=== PATIENT | female | born 1985 | race Caucasian/White ===

== ENCOUNTER 2017-11-14 13:22 | Outpatient (CLI) | END 2017-11-14 15:46 | disposition home or self-care (01) ==

== ENCOUNTER 2018-01-25 10:16 | Outpatient (CLI) | END 2018-01-25 12:10 | disposition home or self-care (01) ==

== ENCOUNTER 2018-01-28 13:04 | Outpatient (CLI) | END 2018-01-28 14:45 | disposition home or self-care (01) ==

== ENCOUNTER 2018-02-26 08:03 | Inpatient (IN) | END 2018-03-02 12:59 | disposition home or self-care (01) | DRG 807 ==

== ENCOUNTER 2018-04-04 13:23 | Emergency (ER) | payer OTHER ==
[~2018-04-04] VITALS: Ht 167.6 cm; Wt 92.4 kg
[~2018-04-04 13:23] MED LIST: PREN-47 PO
[2018-04-04 13:34] VITALS: Ht 167.6 cm; Wt 92.4 kg
[2018-04-04] MEDS ORDERED: LIDOCAINE/MYLANTA 40 ML BTL PO STA (14:52)
[2018-04-04] MEDS ORDERED: ONDA4TAB14 PO (16:48)
[2018-04-04] MEDS ORDERED: UDMYL PO (16:48)
[2018-04-04 16:58] VITALS: BP 110/75; PULSE 71; RESP 16
--- NOTE | 2018-04-04 21:02 | ERD ---
ER Documentation Chief Complaint Chief Complaint SHARP MID ABDOMINAL PAIN RADIATING TO THE BACK X 4 DAYS,VOMITTED X2 HPI 33yo female presents for abdominal pain x4 days. Abd pain is noted to be in the periumbilical area and right upper quadrant, rated 7/10, intermittent, described as sharp and burning. She also c/o nausea, vomiting x2 and low back pain. Pain is worse with eating. She took advil which help with the pain. Denies fever, CP, SOB, dysuria. No diarrhea noted. She has history of kidney infection. Denies ETOH, denies gallstone history. ROS All systems reviewed and are negative except as per history of present illness. Medications Home Meds Active Scripts Magaldrate/Simethicone* (Mag-Al Plus Suspension*) 30 Ml Oral.susp, 30 ML PO Q6H PRN for GASTROINTESTINAL UPSET, #1 BOTTLE Prov:MARIA INES MOHR 04/04/18 Ondansetron (Ondansetron Odt) 4 Mg Tab.rapdis, 4 MG PO Q6H PRN for NAUSEA AND/OR VOMITING, #10 TAB Prov:ONURMARIA INES CARDONA 04/04/18 Reported Medications [id number]-Dymmo Acid (Prenata Chewable) 1 Each Tab.chew, 1 TAB PO DAILY, TAB.CHEW 11/14/17 Allergies Allergies: Coded Allergies: Penicillins (Verified Allergy, Unknown, RASH, 04/04/18) PMhx/Soc Medical and Surgical Hx: pt denies Medical Hx, pt denies Surgical Hx History of Surgery: No Anesthesia Reaction: No Hx Neurological Disorder: No Hx Respiratory Disorders: No Hx Cardiac Disorders: No Hx Psychiatric Problems: No Hx Miscellaneous Medical Probl: Yes (KIDNEY INFECTION) Hx Alcohol Use: No Hx Substance Use: No Hx Tobacco Use: No Smoking Status: Never smoker Physical Exam Vitals Vital Signs Date Temp Pulse Resp B/P (MAP) Pulse Ox O2 O2 Flow FiO2 Time Delivery Rate 04/04/18 97.8 71 16 110/75 97 Room Air 16:58 (87) 04/04/18 97.4 72 19 117/65 98 13:34 (82) Physical Exam Const: No acute distress Resp: Clear to auscultation bilaterally Cardio: Regular rate and rhythm, no murmurs Abd: Soft, non distended. Normal bowel sounds, mild tenderness to palpation for periumbilical and right upper quadrant, no McBurney's point tenderness, no Armas sign, no rebound or guarding noted Skin: No petechiae or rashes Back: No midline or flank tenderness Ext: No cyanosis, or edema Neur: Awake and alert Psych: Normal Mood and Affect Results 24 hrs Laboratory Tests Test 04/04/18 15:05 04/04/18 15:07 POC Beta HCG, Qualitative NEGATIVE White Blood Count 9.4 10^3/ul Red Blood Count 4.79 10^6/ul Hemoglobin 13.3 g/dl Hematocrit 41.1 % Mean Corpuscular Volume 85.8 fl Mean Corpuscular Hemoglobin 27.8 pg Mean Corpuscular Hemoglobin Concent 32.4 g/dl Red Cell Distribution Width 13.1 % Platelet Count 232 10^3/UL Mean Platelet Volume 12.1 fl Immature Granulocytes % 0.300 % Neutrophils % 62.7 % Lymphocytes % 29.8 % Monocytes % 5.2 % Eosinophils % 1.7 % Basophils % 0.3 % Nucleated Red Blood Cells % 0.0 /100WBC Immature Granulocytes # 0.030 10^3/ul Neutrophils # 5.9 10^3/ul Lymphocytes # 2.8 10^3/ul Monocytes # 0.5 10^3/ul Eosinophils # 0.2 10^3/ul Basophils # 0.0 10^3/ul Nucleated Red Blood Cells # 0.0 10^3/ul Urine Color YELLOW Urine Clarity SLIGHTLY CLOUDY Urine pH 5.0 Urine Specific [place] 1.016 Urine Ketones NEGATIVE mg/dL Urine Nitrite NEGATIVE mg/dL Urine Bilirubin NEGATIVE mg/dL Urine Urobilinogen NEGATIVE mg/dL Urine Leukocyte Esterase TRACE Corin/ul Urine Microscopic RBC 1 /HPF Urine Microscopic WBC 3 /HPF Urine Squamous Epithelial Cells FEW /HPF Urine Hemoglobin NEGATIVE mg/dL Urine Glucose NEGATIVE mg/dL Urine Total Protein NEGATIVE mg/dl Sodium Level 140 mmol/L Potassium Level 4.5 mmol/L Chloride Level 107 mmol/L Carbon Dioxide Level 23 mmol/L Anion Gap 10 Blood Urea Nitrogen 14 mg/dl Creatinine 0.89 mg/dl Est Glomerular Filtrat Rate mL/min > 60 mL/min Glucose Level 90 mg/dl Calcium Level 9.6 mg/dl Total Bilirubin 0.4 mg/dl Direct Bilirubin 0.00 mg/dl Indirect Bilirubin 0.4 mg/dl Aspartate Amino Transf (AST/SGOT) 82 IU/L Alanine Aminotransferase (ALT/SGPT) 147 IU/L Alkaline Phosphatase 112 IU/L Total Protein 7.8 g/dl Albumin 4.5 g/dl Globulin 3.30 g/dl Albumin/Globulin Ratio 1.36 Lipase 51 U/L Current Medications Medications Dose Sig/Dennys Start Time Status Last (Trade) Ordered Route PRN Stop Time Admin Dose Reason Admin 40 ml ONCE STAT 04/04/18 DC 04/04/18 Miscellaneous PO 14:52 15:01 Medication 04/04/18 14:53 (Gi Cocktail (2)) Procedures/MDM Medical Decision Making: Differential diagnosis includes but not limited to acute gastroenteritis, appendicitis, cholecystitis, pancreatitis. Patient appeared well on physical exam. Nontoxic appearing. Abdominal examination showed tenderness in the periumbical and right upper quadrant. Labs: CBC showed no anemia, no elevated WBC to suggest infection CMP showed no electrolyte abnormalities, there was normal kidney function, mildly elevated AST and ALT. Lipase was normal Urine was negative UA was negative for infection Imaging: Gallstone ultrasound showed Gallbladder is not well seen. Possible gallbladder filled with calcified stones versus overlying bowel gas in the gallbladder fossa. Possible gallbladder wall thickening. No evidence of pericholecystic fluid. Mild right-sided hydronephrosis. There is low suspicion for an acute abdomen. patient advised to repeat liver function test and gallbladder ultrasound with PCP patient possibly has acute gastritis. ED course: Patient was given GI cocktail. Symptoms improved with treatment. Prescription(s): Patient given prescription for mylanta and zofran. Patient advised to follow up with PCP in 1-2 days. Patient advised to return to ED for new or worsening symptoms. Patient stable on discharge from the ED. Disclaimer: Inadvertent spelling and grammatical errors are likely due to EHR/dictation software use and do not reflect on the overall quality of patient care. Also, please note that the electronic time recorded on this note does not necessarily reflect the actual time of the patient encounter. Departure Diagnosis: Primary Impression: Abdominal pain Condition: Fair Patient Instructions: Abdominal Pain Referrals: COURT LYON (PCP) Additional Instructions: Call your primary care doctor TOMORROW for an appointment during the next 1-2 da ys.See the doctor sooner or return here if your condition worsens before your appointment time. MARIA INES MOHR DO Apr 04, 2018 21:02
== END 2018-04-04 16:58 | disposition home or self-care (01) ==
LOC: FTE 13:23
DX: R10.9 Unspecified abdominal pain (principal)
CPT/HCPCS: 36415; 76705; 80053; 81001; 81025; 83690; 85025; Z7502; Z7610

== ENCOUNTER 2018-05-10 19:13 | Emergency (ER) | payer OTHER ==
[~2018-05-10] VITALS: Ht 165.1 cm; Wt 95.7 kg
[~2018-05-10 19:13] MED LIST changes: +ONDA4TAB14 PO; +UDMYL PO
[2018-05-10 19:18] VITALS: Ht 165.1 cm; Wt 95.7 kg
[2018-05-10] MEDS ORDERED: ONDANSETRON 4 MG INJ IV STA (20:49)
[2018-05-10] MEDS ORDERED: SOD CHLORIDE 0.9% 1,000 ML IV STA (20:49)
[2018-05-10] MEDS ORDERED: morphine 4 MG/ML VIAL IV STA (20:49)
[2018-05-10 21:53] VITALS: BP 109/78; PULSE 86; RESP 21
[2018-05-10] MEDS ORDERED: IBUP800T48 PO (22:33)
--- NOTE | 2018-05-10 23:01 | ERD ---
ER Documentation Chief Complaint Chief Complaint R flank & RUQ ab pains just now; hx pyelo HPI 33-year-old female presents to the emergency room with epigastric and right upper quadrant abdominal pain radiating to her back. Symptoms for approximately 3-4 hours. Prior history of cholelithiasis. No dysuria urgency or frequency. No fevers or chills. Remote history of pyelonephritis but this feels different. ROS All systems reviewed and are negative except as per history of present illness. Medications Home Meds Active Scripts Ibuprofen* (Motrin*) 800 Mg Tab, 800 MG PO Q6H PRN for PAIN AND OR ELEVATED TEMP, #30 TAB Prov:YORDY MONTES MD 05/10/18 Discontinued Reported Medications [id number]-Kuvd-Crjar Acid (Prenata Chewable) 1 Each Tab.chew, 1 TAB PO DAILY, TAB.CHEW 11/14/17 Discontinued Scripts Magaldrate/Simethicone* (Mag-Al Plus Suspension*) 30 Ml Oral.susp, 30 ML PO Q6H PRN for GASTROINTESTINAL UPSET, #1 BOTTLE Prov:MARIA INES MOHR DO 04/04/18 Ondansetron (Ondansetron Odt) 4 Mg Tab.rapdis, 4 MG PO Q6H PRN for NAUSEA AND/OR VOMITING, #10 TAB Prov:MARIA INES MOHR DO 04/04/18 Allergies Allergies: Coded Allergies: Penicillins (Verified Allergy, Unknown, RASH, 05/10/18) PMhx/Soc Medical and Surgical Hx: pt denies Medical Hx, pt denies Surgical Hx History of Surgery: No Anesthesia Reaction: No Hx Neurological Disorder: No Hx Respiratory Disorders: No Hx Cardiac Disorders: No Hx Psychiatric Problems: No Hx Miscellaneous Medical Probl: No Hx Alcohol Use: No Hx Substance Use: No Hx Tobacco Use: No Smoking Status: Never smoker FmHx Family History: No diabetes Physical Exam Vitals Vital Signs Date Temp Pulse Resp B/P (MAP) Pulse Ox O2 O2 Flow FiO2 Time Delivery Rate 05/10/18 97.2 86 21 109/78 100 Room Air 21:53 (88) 05/10/18 97.2 75 18 129/91 99 Room Air 21:04 (104) 05/10/18 97.2 86 18 165/75 99 19:18 (105) Physical Exam General: Well developed, well nourished, no acute distress Head: Normocephalic, atraumatic. Eyes: Pupils equally reactive, EOM intact ENT: Moist mucous membranes Neck: Supple, no lymphadenopathy Respiratory: Lungs clear bilaterally, no distress Cardiovascular: RRR, no murmurs, rubs, or gallops Abdominal: Soft, non-tender, non-distended, no peritoneal signs, negative Armas sign : Deferred MSK: No edema, no unilateral swelling, 5/5 strength Neurologic: Alert and oriented, moving all extremities, normal speech, no focal weakness, no cerebellar signs Skin: No rash Psych: Normal mood Result Diagram: 05/10/18 2100 05/10/18 2100 Results 24 hrs Laboratory Tests Test 05/10/18 20:57 05/10/18 20:58 05/10/18 21:00 Bedside Urine pH (LAB) 6.0 Bedside Urine Protein (LAB) Negative Bedside Urine Glucose (UA) Negative Bedside Urine Ketones (LAB) Negative Bedside Urine Blood 1+ Bedside Urine Nitrite (LAB) Negative Bedside Urine Leukocyte Esterase Trace (L POC Beta HCG, Qualitative NEGATIVE White Blood Count 11.1 10^3/ul Red Blood Count 4.41 10^6/ul Hemoglobin 12.3 g/dl Hematocrit 37.9 % Mean Corpuscular Volume 85.9 fl Mean Corpuscular Hemoglobin 27.9 pg Mean Corpuscular 32.5 g/dl Hemoglobin Concent Red Cell Distribution Width 13.6 % Platelet Count 267 10^3/UL Mean Platelet Volume 12.2 fl Immature Granulocytes % 0.500 % Neutrophils % 62.4 % Lymphocytes % 30.8 % Monocytes % 5.1 % Eosinophils % 0.8 % Basophils % 0.4 % Nucleated Red Blood Cells % 0.0 /100WBC Immature Granulocytes # 0.060 10^3/ul Neutrophils # 6.9 10^3/ul Lymphocytes # 3.4 10^3/ul Monocytes # 0.6 10^3/ul Eosinophils # 0.1 10^3/ul Basophils # 0.0 10^3/ul Nucleated Red Blood Cells # 0.0 10^3/ul Urine Color YELLOW Urine Clarity SLIGHTLY CLOUDY Urine pH 5.0 Urine Specific [place] 1.016 Urine Ketones NEGATIVE mg/dL Urine Nitrite NEGATIVE mg/dL Urine Bilirubin NEGATIVE mg/dL Urine Urobilinogen NEGATIVE mg/dL Urine Leukocyte Esterase 1+ Corin/ul Urine Microscopic RBC 2 /HPF Urine Microscopic WBC 14 /HPF Urine Squamous Epithelial Cells FEW /HPF Urine Bacteria FEW /HPF Urine Hemoglobin 2+ mg/dL Urine Glucose NEGATIVE mg/dL Urine Total Protein NEGATIVE mg/dl Sodium Level 140 mmol/L Potassium Level 4.1 mmol/L Chloride Level 102 mmol/L Carbon Dioxide Level 25 mmol/L Anion Gap 13 Blood Urea Nitrogen 16 mg/dl Creatinine 0.66 mg/dl Est Glomerular Filtrat > 60 mL/min Rate mL/min Glucose Level 112 mg/dl Calcium Level 9.6 mg/dl Total Bilirubin 0.5 mg/dl Direct Bilirubin 0.00 mg/dl Indirect Bilirubin 0.5 mg/dl Aspartate Amino Transf (AST/SGOT) 260 IU/L Alanine 138 IU/L Aminotransferase (ALT/SGPT) Alkaline Phosphatase 103 IU/L Total Protein 7.9 g/dl Albumin 4.4 g/dl Globulin 3.50 g/dl Albumin/Globulin Ratio 1.25 Lipase 400 U/L Current Medications Medications Dose Sig/Dennys Start Time Status Last (Trade) Ordered Route PRN Stop Time Admin Dose Reason Admin Sodium 1,000 ml @ Q1H STAT 05/10/18 DC 05/10/18 Chloride 1,000 mls/hr IV 20:49 20:59 05/10/18 21:48 Morphine 4 mg ONCE STAT 05/10/18 DC 05/10/18 Sulfate IV 20:49 20:58 (morphine) 05/10/18 20:51 Ondansetron 4 mg ONCE STAT 05/10/18 DC 05/10/18 HCl (Zofran IV 20:49 20:58 Inj) 05/10/18 20:51 Procedures/MDM EKG, MONITORS, & DIAGNOSTIC IMAGING: US GB IMPRESSION: 1. Hepatomegaly with fatty liver changes. 2. Cholelithiasis. 3. Multiple right renal calculi. Mild renal pelvic dilation is not excluded. Detail is limited. RPTAT: HPPP LAB INTERPRETATION: I reviewed the laboratory testing and it shows very mild transaminitis but a normal alk phos, lipase is nonspecifically elevated at 400 and normal bilirubin MEDICAL DECISION MAKING: Patient presents with what appears to be signs and symptoms consistent with biliary colic. Clinical exam is not consistent with acute cholecystitis or pyelonephritis. Otherwise benign abdominal exam without signs of acute appendicitis. ER COURSE: * The patient's laboratory testing does show some slight elevation of transaminitis and lipase however the patient's bilirubin is normal and alk phos is normal. This is nonspecific and not convincing for choledocholithias is. Given that the patient has complete resolution of pain I do not believe inpatient hospitalization for MRCP is necessary. Strict return precautions however were discussed and understood with the patient. * Urinalysis not convincing for UTI. * Repeat abdominal exam is benign. The patient was advised that she needs to follow-up with a general surgeon outpatient basis. Return for pain that is in tractable or fevers. Patient verbalized understanding and feels comfortable with the plan. CONSULTATION: None DISPOSITION PLAN: The patient does not have an identifiable emergent medical condition that warrants inpatient hospitalization at this time. The patient is deemed safe for discharge with outpatient follow-up. We discussed follow up with the patient's primary care doctor within 24 to 48 hours as needed. We also discussed return to the emergency room for worsening symptoms or worsening condition. Outpatient referral: General surgeon Discharge Medications: Motrin Departure Diagnosis: Primary Impression: Biliary colic Condition: Stable Patient Instructions: Biliary Colic With Gallstone (Confirmed) Referrals: Ángel AVILA SAMUEL MD Additional Instructions: Call your primary care doctor TOMORROW for an appointment during the next 1 WEEK.Tell the medical unit secretary that you were referred from this facility.See the doctor sooner or return here if your condition worsens before your appointment time. YORDY MONTES MD May 10, 2018 23:01
== END 2018-05-10 23:21 | disposition home or self-care (01) ==
LOC: E/R 19:13
DX: K80.50 Calculus of bile duct without cholangitis or cholecystitis without obstruction (principal)
CPT/HCPCS: 36415; 76705; 80053; 81001; 81025; 83690; 85025; 96374; 96375; J2270; J2405; J7030; Z7502; 81003

== ENCOUNTER 2018-06-13 19:51 | Emergency (ER) | payer OTHER ==
[~2018-06-13] VITALS: Ht 162.6 cm; Wt 97.7 kg
[~2018-06-13 19:51] MED LIST changes: +IBUP800T48 PO; -ONDA4TAB14 PO; -PREN-47 PO; -UDMYL PO
[2018-06-13 20:53] VITALS: Ht 162.6 cm; Wt 97.7 kg
[2018-06-13] MEDS ORDERED: KETOROLAC 30 MG INJ IV STA (23:40)
--- NOTE | 2018-06-14 01:44 | ERD ---
ER Documentation Chief Complaint Chief Complaint C/O EPIGASTRIC PAIN X2 MONTHS WORSE SINCE YESTERDAY HPI 33-year-old female, very pleasant with a history of known gallstones who presents with worsening postprandial right upper quadrant abdominal pain radiating to the right flank. Patient's symptoms are similar to bili or colic in the past. Pain is approximate 5 out of 10. No fevers or chills nausea or vomiting. Patient has surgical follow-up within the next month. ROS All systems reviewed and are negative except as per history of present illness. Medications Home Meds Active Scripts Ibuprofen* (Motrin*) 800 Mg Tab, 800 MG PO Q6H PRN for PAIN AND OR ELEVATED TEMP, #30 TAB Prov:YORDY MONTES MD 06/14/18 Ibuprofen* (Motrin*) 800 Mg Tab, 800 MG PO Q6H PRN for PAIN AND OR ELEVATED TEMP, #30 TAB Prov:YORDY MONTES MD 05/10/18 Allergies Allergies: Coded Allergies: Penicillins (Verified Allergy, Unknown, RASH, 05/10/18) PMhx/Soc History of Surgery: No Anesthesia Reaction: No Hx Neurological Disorder: No Hx Respiratory Disorders: No Hx Cardiac Disorders: No Hx Psychiatric Problems: No Hx Miscellaneous Medical Probl: No Hx Alcohol Use: Yes Hx Substance Use: No Hx Tobacco Use: No Smoking Status: Never smoker FmHx Family History: No diabetes Physical Exam Vitals Vital Signs Date Temp Pulse Resp B/P (MAP) Pulse Ox O2 O2 Flow FiO2 Time Delivery Rate 06/13/18 97.6 85 19 145/57 100 20:53 (86) Physical Exam General: Well developed, well nourished, no acute distress Head: Normocephalic, atraumatic. Eyes: Pupils equally reactive, EOM intact ENT: Moist mucous membranes Neck: Supple, no lymphadenopathy Respiratory: Lungs clear bilaterally, no distress Cardiovascular: RRR, no murmurs, rubs, or gallops Abdominal: Soft, very mild right upper quadrant abdominal tenderness without Armas sign. No tenderness to McBurney's point : Deferred MSK: No edema, no unilateral swelling, 5/5 strength Neurologic: Alert and oriented, moving all extremities, normal speech, no focal weakness, no cerebellar signs Skin: No rash Psych: Normal mood Result Diagram: 06/13/18 2350 06/13/18 2350 Results 24 hrs Laboratory Tests Test 06/13/18 23:50 06/13/18 23:54 White Blood Count 12.0 10^3/ul Red Blood Count 4.65 10^6/ul Hemoglobin 13.2 g/dl Hematocrit 40.6 % Mean Corpuscular Volume 87.3 fl Mean Corpuscular Hemoglobin 28.4 pg Mean Corpuscular Hemoglobin Concent 32.5 g/dl Red Cell Distribution Width 13.3 % Platelet Count 312 10^3/UL Mean Platelet Volume 11.6 fl Immature Granulocytes % 0.400 % Neutrophils % 64.8 % Lymphocytes % 29.0 % Monocytes % 5.0 % Eosinophils % 0.5 % Basophils % 0.3 % Nucleated Red Blood Cells % 0.0 /100WBC Immature Granulocytes # 0.050 10^3/ul Neutrophils # 7.7 10^3/ul Lymphocytes # 3.5 10^3/ul Monocytes # 0.6 10^3/ul Eosinophils # 0.1 10^3/ul Basophils # 0.0 10^3/ul Nucleated Red Blood Cells # 0.0 10^3/ul Sodium Level 142 mmol/L Potassium Level 4.0 mmol/L Chloride Level 101 mmol/L Carbon Dioxide Level 26 mmol/L Anion Gap 15 Blood Urea Nitrogen 17 mg/dl Creatinine 0.82 mg/dl Est Glomerular Filtrat Rate mL/min > 60 mL/min Glucose Level 109 mg/dl Calcium Level 10.2 mg/dl Total Bilirubin 0.5 mg/dl Direct Bilirubin 0.00 mg/dl Indirect Bilirubin 0.5 mg/dl Aspartate Amino Transf (AST/SGOT) 66 IU/L Alanine Aminotransferase (ALT/SGPT) 77 IU/L Alkaline Phosphatase 94 IU/L Total Protein 8.1 g/dl Albumin 4.6 g/dl Globulin 3.50 g/dl Albumin/Globulin Ratio 1.31 Lipase 60 U/L POC Beta HCG, Qualitative NEGATIVE Current Medications Medications Dose Sig/Dennys Start Time Status Last (Trade) Ordered Route PRN Stop Time Admin Dose Reason Admin Ketorolac 30 mg ONCE STAT 06/13/18 DC 06/14/18 Tromethamine IV 23:40 00:17 (Toradol) 06/13/18 23:41 Procedures/MDM EKG, MONITORS, & DIAGNOSTIC IMAGING: Ultrasound gallbladder: IMPRESSION: Redemonstration of cholelithiasis. Gallbladder wall is poorly visualized on the current exam. Fatty infiltration of the liver. Nonobstructive right-sided nephrolithiasis. RPTAT: HAP LAB INTERPRETATION: I reviewed the laboratory testing and it shows mild transaminitis but no obs truction MEDICAL DECISION MAKING: Signs and symptoms very consistent with acute on chronic biliary colic. Low concern for acute cholecystitis, choledocholithiasis or pancreatitis the laboratory testing and repeat ultrasound imaging would be most appropriate. The patient has appropriate outpatient follow-up. If no signs of infection, hepatobiliary obstruction or uncontrolled pain are noted the patient can be safely managed on an outpatient basis as already planned. ER COURSE: * Symptoms improved. No evidence of infection, hepatobiliary obstruction. Pain is well controlled. Patient can be safely managed as an outpatient. CONSULTATION: None DISPOSITION PLAN: The patient does not have an identifiable emergent medical condition that warrants inpatient hospitalization at this time. The patient is deemed safe for discharge with outpatient follow-up. We discussed follow up with the patient's primary care doctor within 24 to 48 hours as needed. We also discussed return to the emergency room for worsening symptoms or worsening condition. Outpatient referral: General surgery Discharge Medications: Motrin Departure Diagnosis: Primary Impression: Biliary colic Additional Impression: Abdominal pain Abdominal location: right upper quadrant Qualified Codes: R10.11 - Right upper quadrant pain Condition: Stable YORDY MONTES MD Jun 14, 2018 01:44
[2018-06-14] MEDS ORDERED: IBUP800T48 PO (03:03)
[2018-06-14 03:16] VITALS: BP 145/57; PULSE 79; RESP 19
== END 2018-06-14 03:18 | disposition home or self-care (01) ==
LOC: E/R 19:51
DX: K80.50 Calculus of bile duct without cholangitis or cholecystitis without obstruction (principal)
CPT/HCPCS: 76705; 80053; 81025; 83690; 85025; 96374; J1885; Z7502; Z7610